=== PATIENT | male | born 1945 | race Caucasian/White ===

== ENCOUNTER → 2016-08-20 | Outpatient (CLI) | payer OTHER ==
[~2016-08-20] MED LIST: DICL-201 PO; LEVO100T7 PO; LPR50X PO; METH2.5T PO; PLQ200 PO; PRED-301 PO; ZCR40 PO
== END | disposition home or self-care (01) ==
LOC: C.LABBFT 08:01
PROVIDERS: ATTEND Internal Medicine
DX: E55.9 Vitamin D deficiency, unspecified (principal)

== ENCOUNTER → 2016-10-06 | Outpatient (CLI) | payer OTHER ==
[2016-10-06 12:30] LABS: BASO % 0.3 %; BASO ABS # 0.03 K/uL (0-0.2); COMPLETE YES; EOS % 2.1 %; HEMATOCRIT 43.6 % (42-52); IG% 0.4 %; LYMPH % 11.8 %; LYMPH ABS # 1.11 K/uL (1.2-3.4); MEAN CELL VOLUME 92.2 fL (80-100); MEAN CORPUSCULAR HEMOGLOBIN 30.9 pg (25-34); MEAN CORPUSCULAR HGB CONC 33.5 g/dl (32-36); MEAN PLATELET VOLUME 9.4 fL (7.4-10.4); NEUT % 79.4 %; PLATELET COUNT 246 K/uL (130-400); RED BLOOD COUNT 4.73 M/uL (4.7-6.1); WHITE BLOOD COUNT 9.43 K/uL (4.8-10.8)
[2016-10-06 13:52] LABS: ALT/SGPT 31 U/L (12-78); AST/SGOT 19 U/L (15-37)
[2016-10-06 13:55] LABS: ALKALINE PHOSPHATASE 82 U/L (45-117)
== END | disposition home or self-care (01) ==
LOC: C.LABBFT 08:37
PROVIDERS: ATTEND Urology
DX: M05.741 Rheumatoid arthritis with rheumatoid factor of right hand without organ or systems involvement (principal); M05.742 Rheumatoid arthritis with rheumatoid factor of left hand without organ or systems involvement; Z79.1 Long term (current) use of non-steroidal anti-inflammatories (NSAID)

== ENCOUNTER → 2017-03-11 | Outpatient (CLI) | payer OTHER ==
[2017-03-11 12:58] LABS: BASO % 0.5 %; BASO ABS # 0.04 K/uL (0-0.2); COMPLETE YES; EOS % 1.7 %; IG% 2.7 %; LYMPH % 21.1 %; LYMPH ABS # 1.74 K/uL (1.2-3.4); MEAN CELL VOLUME 94.1 fL (80-100); MEAN CORPUSCULAR HEMOGLOBIN 30.9 pg (25-34); MEAN CORPUSCULAR HGB CONC 32.8 g/dl (32-36); MEAN PLATELET VOLUME 8.9 fL (7.4-10.4); MONO % 5.7 %; NEUT % 68.3 %; PLATELET COUNT 227 K/uL (130-400); RED BLOOD COUNT 4.57 M/uL (4.7-6.1); WHITE BLOOD COUNT 8.26 K/uL (4.8-10.8)
[2017-03-11 13:24] LABS: ALT/SGPT 44 U/L (12-78); AST/SGOT 22 U/L (15-37)
== END | disposition home or self-care (01) ==
LOC: C.LABBFT 07:39
PROVIDERS: ATTEND Urology
DX: R97.20 Elevated prostate specific antigen [PSA] (principal); Z79.899 Other long term (current) drug therapy

== ENCOUNTER → 2017-04-23 | Outpatient (CLI) | payer OTHER ==
[2017-04-23 12:46] LABS: HEMATOCRIT 42.2 % (42-52); MEAN CELL VOLUME 93.8 fL (80-100); MEAN CORPUSCULAR HEMOGLOBIN 31.1 pg (25-34); MEAN CORPUSCULAR HGB CONC 33.2 g/dl (32-36); PLATELET COUNT 246 K/uL (130-400); WHITE BLOOD COUNT 10.15 K/uL (4.8-10.8)
[2017-04-23 13:10] LABS: BLOOD UREA NITROGEN 15 mg/dl (7-18); BUN/CREATININE RATIO 14.5 (10-20)
[2017-04-23 13:15] LABS: ALKALINE PHOSPHATASE 77 U/L (45-117); ALT/SGPT 36 U/L (12-78); AST/SGOT 19 U/L (15-37)
[2017-04-23 13:21] LABS: COMPLETE YES; LYMPH ABS # 1.59 K/uL (1.2-3.4); LYMPHOCYTE % 15.7 %; MYELOCYTE % 0.9 %; NEUTROPHILS % 73.8 %
== END | disposition home or self-care (01) ==
LOC: C.LABBFT 07:57
PROVIDERS: ATTEND Urology
DX: M54.2 Cervicalgia (principal); M05.741 Rheumatoid arthritis with rheumatoid factor of right hand without organ or systems involvement; M05.742 Rheumatoid arthritis with rheumatoid factor of left hand without organ or systems involvement; Z51.81 Encounter for therapeutic drug level monitoring; Z79.899 Other long term (current) drug therapy; Z79.1 Long term (current) use of non-steroidal anti-inflammatories (NSAID); R97.20 Elevated prostate specific antigen [PSA]

== ENCOUNTER → 2017-04-28 | Outpatient (CLI) | payer OTHER ==
[~2017-04-28] MED LIST changes: +GADAVIST IV PRN
--- NOTE | 2017-04-28 12:53 | DIAGNOSTIC IMAGING REPORT ---
PROSTATE MRI COMBO CLINICAL HISTORY: 71 years-old Male presenting with elevated PSA, history of biopsy 3 years ago. PSA 16 ng/mL. TECHNIQUE: Multisequence, multiplanar MR imaging of the prostate was performed before and after the administration of intravenous contrast. Additional postprocessing was performed on a separate [employer] workstation by the radiologist for 3-D volumetric segmentation of the prostate and contouring of region(s) of interest (SHANTAL) for targeting. IV contrast: 7.5 mL of Gadavist. COMPARISON: 03/31/2016. FINDINGS: Prostate: The prostate measures 5.8 x 4.3 x 4.7 cm (DynaCAD prostate boundary segmentation volume 63 mL). Moderate changes of benign prostatic hyperplasia. Precontrast T1 weighted imaging demonstrates no evidence of intrinsic T1 hyperintensity to suggest hemorrhage. Asymmetric atrophy of the right seminal vesicle. Residual prominent T2 hypointense central zone noted at the prostatic base. No suspicious lesion is apparent in the transition or peripheral zones. Bladder: Bladder wall thickening likely indicating chronic outlet obstruction. Bowel: Rectal wall thickening with enhancing mural vessels suggesting internal hemorrhoids. Peritoneum: No free fluid in the pelvis. Small fat-containing left inguinal hernia. Lymph nodes: No lymphadenopathy in the visualized portion of the pelvis. Vasculature: Iliac vessels patent. Osseous structures: Normal bone marrow signal intensity. IMPRESSION: 1. No suspicious lesion in the prostate for targeted biopsy. 2. Benign prostatic hyperplasia. Electronically signed by: José Barbour M.D. 04/28/2017 12:52 PM Dictated Date/Time: 04/28/2017 12:40 PM
== END | disposition home or self-care (01) ==
LOC: C.MRIBC 09:13
PROVIDERS: ATTEND Urology
DX: R97.20 Elevated prostate specific antigen [PSA] (principal); N40.0 Benign prostatic hyperplasia without lower urinary tract symptoms

== ENCOUNTER → 2017-06-07 | Outpatient (CLI) | payer OTHER ==
[~2017-06-07] MED LIST changes: -GADAVIST IV PRN
== END | disposition home or self-care (01) ==
LOC: C.PATHSPEC 18:11
PROVIDERS: ATTEND Urology
DX: R97.20 Elevated prostate specific antigen [PSA] (principal)

== ENCOUNTER → 2017-07-29 | Outpatient (CLI) | payer OTHER ==
[2017-07-29 12:38] LABS: BASO % 0.2 %; BASO ABS # 0.02 K/uL (0-0.2); EOS % 2.4 %; EOS ABS # 0.19 K/uL (0-0.5); HEMATOCRIT 44.4 % (42-52); HEMOGLOBIN 14.8 g/dL (14.0-18.0); IG# 0.08 K/uL (0.00-0.02); LYMPH % 23.2 %; LYMPH ABS # 1.86 K/uL (1.2-3.4); MEAN CELL VOLUME 97.4 fL (80-100); MEAN CORPUSCULAR HEMOGLOBIN 32.5 pg (25-34); MEAN CORPUSCULAR HGB CONC 33.3 g/dl (32-36); MEAN PLATELET VOLUME 9.5 fL (7.4-10.4); MONO % 7.7 %; MONO ABS # 0.62 K/uL (0.11-0.59); NEUT % 65.5 %; NEUT ABS # 5.26 K/uL (1.4-6.5); PLATELET COUNT 226 K/uL (130-400); RED CELL DISTRIBUTION WIDTH CV 14.5 % (11.5-14.5); RED CELL DISTRIBUTION WIDTH SD 51.8 fL (36.4-46.3); WHITE BLOOD COUNT 8.03 K/uL (4.8-10.8)
[2017-07-29 12:49] LABS: ALBUMIN 3.4 gm/dl (3.4-5.0); ALT/SGPT 39 U/L (12-78); CHOLESTEROL 160 mg/dl (0-200); CREATININE 1.08 mg/dl (0.60-1.40)
[2017-07-29 13:00] LABS: ALKALINE PHOSPHATASE 69 U/L (45-117); AST/SGOT 18 U/L (15-37); LDL CHOLESTEROL CALCULATED 83 mg/dl; TOTAL PROTEIN 6.5 gm/dl (6.4-8.2)
== END | disposition home or self-care (01) ==
LOC: C.LABBFT 07:46
PROVIDERS: ATTEND Internal Medicine
DX: M54.2 Cervicalgia (principal); M05.741 Rheumatoid arthritis with rheumatoid factor of right hand without organ or systems involvement; M05.742 Rheumatoid arthritis with rheumatoid factor of left hand without organ or systems involvement; Z79.1 Long term (current) use of non-steroidal anti-inflammatories (NSAID); E78.00 Pure hypercholesterolemia, unspecified; E03.9 Hypothyroidism, unspecified

== ENCOUNTER 2017-08-27 13:00 | Emergency (ER) | payer OTHER ==
[~2017-08-27] VITALS: Ht 175.3 cm; Wt 75.0 kg
[2017-08-27 13:05] VITALS: TEMP 36.9; Ht 175.3 cm; Wt 75.0 kg
[2017-08-27] MEDS ORDERED: FOLI1TAB8 PO (13:46)
[2017-08-27 13:51] VITALS: O2SAT 97
--- NOTE | 2017-08-27 13:52 | EMERGENCY ROOM VISIT NOTE ---
History Report prepared by Tete: Mely Colby Under the Supervision of: Celina DiazO. First contact with patient: 13:38 Chief Complaint: HYPERTENSION Stated Complaint: HIGH BP, TINGLING IN RT ARM History of Present Illness The patient is a 72 year old male who presents to the Emergency Room with complaints of persistent hypertension that began about one month ago. He notes that he has been experiencing tingling and numbness in his right arm which comes and goes throughout the day. The patient denies any chest pain, trouble breathing, weakness in legs, nausea, or vomiting. He reports that he called his PCP earlier today, who suggested he come to the Emergency Department for further evaluation. The patient states he takes medication for hypertension, high cholesterol, thyroid, and arthritis. He denies ever having a stroke, TIA, or cancer history. Source of History: patient Onset: one month ago Position: other (global) Quality: other (hypertension) Timing: other (persistent) Associated Symptoms: No chest pain, No nausea, No vomiting Note: Associated symptoms include: tingling and numbness in his right arm. The patient denies any trouble breathing or weakness in legs. Review of Systems See HPI for pertinent positives & negatives. A total of 10 systems reviewed and were otherwise negative. Past Medical & Surgical Medical Problems: (1) Arthritis (2) High cholesterol (3) Hypertension (4) Thyroid condition Family History Patient reports no known family medical history. No pertinent family history. Social History Smoking Status: Never Smoker Current/Historical Medications Scheduled Diclofenac (Voltaren), 75 MG PO BID Folic Acid (Folvite), 2 MG PO [id number] Levothyroxine Sodium (Levothyroxine Sodium), 100 MG PO QAM Methotrexate (Methotrexate), 12.5 MG PO WK Metoprolol Tartrate (Metoprolol Tartrate), 50 MG PO BID Prednisone (Prednisone), 10 MG PO BID Simvastatin (Simvastatin), 40 MG PO HS Allergies Coded Allergies: No Known Allergies (Unverified , 08/27/17) Physical Exam Vital Signs Date Time Temp Pulse Resp B/P (MAP) Pulse Ox O2 Delivery O2 Flow Rate FiO2 08/27/17 16:29 65 18 154/94 98 08/27/17 16:24 65 154/94 98 Room Air 08/27/17 14:44 64 18 174/99 96 Room Air 08/27/17 13:51 Room Air 08/27/17 13:51 97 Room Air 08/27/17 13:46 74 08/27/17 13:05 36.9 92 20 176/118 97 Room Air Physical Exam GENERAL: Patient is awake, alert, and in no acute distress. Patient is resting comfortably and showing no signs of anxiety EYES: The conjunctivae are clear. The pupils are round and reactive. EARS, NOSE, MOUTH AND THROAT: The nose is without any evidence of any deformity. Mucous membranes are moist tongue is midline NECK: The neck is nontender and supple. RESPIRATORY: Normal respiratory effort is noted there is no evidence of wheezing rhonchi or rales CARDIOVASCULAR: Regular rate and rhythm noted there no murmurs rubs or gallops normal S1 normal S2 GASTROINTESTINAL: The abdomen is soft. Bowel sounds are present in all quadrants. Abdomen is nontender MUSCULOSKELETAL/EXTREMITIES: There is no evidence of gross deformity full range of motion is noted in the hips and shoulders SKIN: There is no obvious evidence of any rash. There are no petechiae, pallor or cyanosis noted. NEUROLOGIC: Patient is awake alert and oriented x3 strength is symmetric patellar reflexes are 2+ bilaterally Medical Decision & Procedures ER Provider Diagnostic Interpretation: Radiology results as stated below per my review and radiologist interpretation: CHEST ONE VIEW PORTABLE CLINICAL HISTORY: Altered mental status. Hypertension. Left arm tingling. COMPARISON STUDY: No previous studies for comparison. FINDINGS: The heart is normal in size. There is aortic tortuosity. There is mild biapical pleural thickening. There is no failure. There is no focal pulmonary consolidation. There are no pleural effusions.[ IMPRESSION: No active disease in the chest. Electronically signed by: Gino Sepulveda M.D. 08/27/2017 2:20 PM Dictated Date/Time: 08/27/2017 2:[address] HEAD WITHOUT CONTRAST (CT) CLINICAL HISTORY: Altered mental status. Weakness. COMPARISON STUDY: No previous studies for comparison. TECHNIQUE: Axial CT of the brain is performed from the vertex to the skull base. IV contrast was not administered for this examination. A dose lowering technique was utilized adhering to the principles of ALARA. CT DOSE: 638.56 mGycm FINDINGS: No intra or extra-axial mass lesions are visualized. There is no CT evidence of acute cortical infarction. There is no evidence of midline shift. There is no acute hemorrhage. No calvarial fractures are visualized. There are patchy white matter hypodensities likely on a small vessel basis. There is no evidence of pathologic ventricular dilatation. There is no evidence of acute sinusitis IMPRESSION: No acute intracranial findings Electronically signed by: Gino Sepulveda M.D. 08/27/2017 2:24 PM Dictated Date/Time: 08/27/2017 2:23 PM Laboratory Results 08/27/17 13:43 Red Blood Count 4.93, Mean Corpuscular Volume 95.1, Mean Corpuscular Hemoglobin 33.1, Mean Corpuscular Hemoglobin Concent 34.8, Mean Platelet Volume 8.8, Neutrophils (%) (Auto) 86.3, Lymphocytes (%) (Auto) 8.5, Monocytes (%) (Auto) 3.2, Eosinophils (%) (Auto) 0.2, Basophils (%) (Auto) 0.3, Neutrophils # (Auto) 9.11, Lymphocytes # (Auto) 0.90, Monocytes # (Auto) 0.34, Eosinophils # (Auto) 0.02, Basophils # (Auto) 0.03 08/27/17 13:43 Test 08/27/17 13:43 08/27/17 14:40 White Blood Count 10.56 K/uL (4.8-10.8) Red Blood Count 4.93 M/uL (4.7-6.1) Hemoglobin 16.3 g/dL (14.0-18.0) Hematocrit 46.9 % (42-52) Mean Corpuscular Volume 95.1 fL (80-100) Mean Corpuscular Hemoglobin 33.1 pg (25-34) Mean Corpuscular Hemoglobin Concent 34.8 g/dl (32-36) Platelet Count 227 K/uL (130-400) Mean Platelet Volume 8.8 fL (7.4-10.4) Neutrophils (%) (Auto) 86.3 % Lymphocytes (%) (Auto) 8.5 % Monocytes (%) (Auto) 3.2 % Eosinophils (%) (Auto) 0.2 % Basophils (%) (Auto) 0.3 % Neutrophils # (Auto) 9.11 K/uL (1.4-6.5) Lymphocytes # (Auto) 0.90 K/uL (1.2-3.4) Monocytes # (Auto) 0.34 K/uL (0.11-0.59) Eosinophils # (Auto) 0.02 K/uL (0-0.5) Basophils # (Auto) 0.03 K/uL (0-0.2) RDW Standard Deviation 47.9 fL (36.4-46.3) RDW Coefficient of Variation 14.0 % (11.5-14.5) Immature Granulocyte % (Auto) 1.5 % Immature Granulocyte # (Auto) 0.16 K/uL (0.00-0.02) Prothrombin Time 10.0 SECONDS (9.0-12.0) Prothromb Time International Ratio 1.0 (0.9-1.1) Activated Partial Thromboplast Time 23.5 SECONDS (21.0-31.0) Partial Thromboplastin Ratio 0.9 Anion Gap 8.0 mmol/L (3-11) Est Creatinine Clear Calc Drug Dose 60.0 ml/min Estimated GFR () 75.4 Estimated GFR (Non- 65.0 BUN/Creatinine Ratio 18.8 (10-20) Calcium Level 9.2 mg/dl (8.5-10.1) Magnesium Level 2.4 mg/dl (1.8-2.4) Total Bilirubin 0.6 mg/dl (0.2-1) Direct Bilirubin 0.2 mg/dl (0-0.2) Aspartate Amino Transf (AST/SGOT) 23 U/L (15-37) Alanine Aminotransferase (ALT/SGPT) 44 U/L (12-78) Alkaline Phosphatase 80 U/L (45-117) Total Creatine Kinase 59 U/L (39-308) Creatine Kinase MB 0.8 ng/ml (0.5-3.6) Creatine Kinase MB Ratio 1.4 (0-3.0) Troponin I < 0.015 ng/ml (0-0.045) Total Protein 6.9 gm/dl (6.4-8.2) Albumin 4.1 gm/dl (3.4-5.0) Thyroid Stimulating Hormone (TSH) 0.117 uIu/ml (0.300-4.500) Urine Color YELLOW Urine Appearance CLEAR (CLEAR) Urine pH 7.5 (4.5-7.5) Urine Specific [place] 1.014 (1.000-1.030) Urine Protein NEG (NEG) Urine Glucose (UA) 1+ (NEG) Urine Ketones NEG (NEG) Urine Occult Blood NEG (NEG) Urine Nitrite NEG (NEG) Urine Bilirubin NEG (NEG) Urine Urobilinogen NEG (NEG) Urine Leukocyte Esterase NEG (NEG) Laboratory results per my review. ECG Indication: other (hypertension) Rate (beats per minute): 72 Rhythm: normal sinus Findings: other (Inferior and lateral ST abnormalities noted) Comparison ECG Date: 04/08/2002 ED Course 1339: The patient was evaluated in room B12. A complete history and physical examination were performed. 1603: I reevaluated the patient, who was resting comfortably. 1823: I discussed the patient's case with Dr. Mcdonald [facility] [place]. The patient will be evaluated for further management. Medical Decision Triage Nursing notes reviewed. Differential diagnosis: Etiologies such as benign hypertension, hypertensive emergency, cardiovascular pathology, pheochromocytoma, electrolyte abnormality, renal disease, endorgan damage, as well as others were entertained. The patient is a 72-year-old male who presented to the emergency department for an evaluation of hypertension. The patient has been experiencing right upper extremity numbness but this is been ongoing for quite some time. He has no focal neurologic deficit at this time. The patient was not found to have any acute abnormality on CT the head. I discussed patient's laboratory and radiographic studies with him. He was encouraged to continue all medications as prescribed and follow-up with his primary care physician as soon as possible. Otherwise he is encouraged to return to the emergency department immediately if symptoms change worsen or the need arises. Medication Reconcilliation Current Medication List: was personally reviewed by me Blood Pressure Screening Patient's blood pressure: Elevated blood pressure Blood pressure disposition: Elevated BP felt to be situational Impression Primary Impression: Hypertension Scribe Attestation The scribe's documentation has been prepared under my direction and personally reviewed by me in its entirety. I confirm that the note above accurately reflects all work, treatment, procedures, and medical decision making performed by me. Departure Information Dispostion Home / Self-Care Referrals No Doctor, Assigned (PCP) Forms HOME CARE DOCUMENTATION FORM, IMPORTANT VISIT INFORMATION, WORK / SCHOOL INSTRUCTIONS Patient Instructions My [facility] Problem Qualifiers Primary Impression: Hypertension Hypertension type: unspecified Qualified Codes: I10 - Essential (primary) hypertension
[2017-08-27 13:56] LABS: BASO % 0.3 %; BASO ABS # 0.03 K/uL (0-0.2); EOS % 0.2 %; EOS ABS # 0.02 K/uL (0-0.5); HEMATOCRIT 46.9 % (42-52); HEMOGLOBIN 16.3 g/dL (14.0-18.0); IG# 0.16 K/uL (0.00-0.02); LYMPH % 8.5 %; MEAN CELL VOLUME 95.1 fL (80-100); MEAN CORPUSCULAR HEMOGLOBIN 33.1 pg (25-34); MEAN CORPUSCULAR HGB CONC 34.8 g/dl (32-36); MEAN PLATELET VOLUME 8.8 fL (7.4-10.4); MONO % 3.2 %; MONO ABS # 0.34 K/uL (0.11-0.59); NEUT % 86.3 %; NEUT ABS # 9.11 K/uL (1.4-6.5); PLATELET COUNT 227 K/uL (130-400); RED CELL DISTRIBUTION WIDTH SD 47.9 fL (36.4-46.3); WHITE BLOOD COUNT 10.56 K/uL (4.8-10.8)
[2017-08-27 14:06] LABS: PTT PATIENT 23.5 SECONDS (21.0-31.0)
[2017-08-27 14:22] LABS: ALBUMIN 4.1 gm/dl (3.4-5.0); ALT/SGPT 44 U/L (12-78); AST/SGOT 23 U/L (15-37); BLOOD UREA NITROGEN 21 mg/dl (7-18); CALCIUM 9.2 mg/dl (8.5-10.1); CARBON DIOXIDE 25 mmol/L (21-32); CREATININE 1.13 mg/dl (0.60-1.40); GLUCOSE 111 mg/dl (70-99); POTASSIUM 4.4 mmol/L (3.5-5.1); SODIUM 139 mmol/L (136-145)
--- NOTE | 2017-08-27 14:22 | DIAGNOSTIC IMAGING REPORT ---
CHEST ONE VIEW PORTABLE CLINICAL HISTORY: Altered mental status. Hypertension. Left arm tingling. COMPARISON STUDY: No previous studies for comparison. FINDINGS: The heart is normal in size. There is aortic tortuosity. There is mild biapical pleural thickening. There is no failure. There is no focal pulmonary consolidation. There are no pleural effusions.[ IMPRESSION: No active disease in the chest. Electronically signed by: Gino Sepulveda M.D. 08/27/2017 2:20 PM Dictated Date/Time: 08/27/2017 2:20 PM
--- NOTE | 2017-08-27 14:25 | DIAGNOSTIC IMAGING REPORT ---
CT HEAD WITHOUT CONTRAST (CT) CLINICAL HISTORY: Altered mental status. Weakness. COMPARISON STUDY: No previous studies for comparison. TECHNIQUE: Axial CT of the brain is performed from the vertex to the skull base. IV contrast was not administered for this examination. A dose lowering technique was utilized adhering to the principles of ALARA. CT DOSE: 638.56 mGycm FINDINGS: No intra or extra-axial mass lesions are visualized. There is no CT evidence of acute cortical infarction. There is no evidence of midline shift. There is no acute hemorrhage. No calvarial fractures are visualized. There are patchy white matter hypodensities likely on a small vessel basis. There is no evidence of pathologic ventricular dilatation. There is no evidence of acute sinusitis IMPRESSION: No acute intracranial findings Electronically signed by: Gino Sepulveda M.D. 08/27/2017 2:24 PM Dictated Date/Time: 08/27/2017 2:23 PM
[2017-08-27 14:29] LABS: ALKALINE PHOSPHATASE 80 U/L (45-117); CKMB 0.8 ng/ml (0.5-3.6); TOTAL PROTEIN 6.9 gm/dl (6.4-8.2)
[2017-08-27 16:29] VITALS: BP 154/94; PULSE 65; O2SAT 98
== END 2017-08-27 16:31 | disposition home or self-care (01) ==
LOC: C.EDB 13:02
DX: I10 Essential (primary) hypertension (principal); M19.90 Unspecified osteoarthritis, unspecified site; E78.00 Pure hypercholesterolemia, unspecified; E07.9 Disorder of thyroid, unspecified

== ENCOUNTER → 2017-11-04 | Outpatient (CLI) | payer OTHER ==
[~2017-11-04] MED LIST changes: +FOLI1TAB8 PO; -PLQ200 PO
[2017-11-04 12:19] LABS: BASO ABS # 0.06 K/uL (0-0.2); EOS % 3.9 %; EOS ABS # 0.24 K/uL (0-0.5); HEMATOCRIT 44.9 % (42-52); HEMOGLOBIN 15.4 g/dL (14.0-18.0); IG# 0.03 K/uL (0.00-0.02); LYMPH % 27.7 %; MEAN CELL VOLUME 95.5 fL (80-100); MEAN CORPUSCULAR HEMOGLOBIN 32.8 pg (25-34); MEAN CORPUSCULAR HGB CONC 34.3 g/dl (32-36); MEAN PLATELET VOLUME 9.8 fL (7.4-10.4); MONO % 10.6 %; MONO ABS # 0.65 K/uL (0.11-0.59); NEUT % 56.3 %; NEUT ABS # 3.46 K/uL (1.4-6.5); PLATELET COUNT 170 K/uL (130-400); RED CELL DISTRIBUTION WIDTH CV 13.8 % (11.5-14.5); RED CELL DISTRIBUTION WIDTH SD 47.7 fL (36.4-46.3); WHITE BLOOD COUNT 6.14 K/uL (4.8-10.8)
[2017-11-04 12:45] LABS: ALBUMIN 3.7 gm/dl (3.4-5.0); ALKALINE PHOSPHATASE 74 U/L (45-117); ALT/SGPT 35 U/L (12-78); AST/SGOT 22 U/L (15-37); CREATININE 1.32 mg/dl (0.60-1.40); TOTAL PROTEIN 6.2 gm/dl (6.4-8.2)
== END | disposition home or self-care (01) ==
LOC: C.LABBFT 08:08
PROVIDERS: ATTEND Internal Medicine Rheumatology
DX: M05.741 Rheumatoid arthritis with rheumatoid factor of right hand without organ or systems involvement (principal); M05.742 Rheumatoid arthritis with rheumatoid factor of left hand without organ or systems involvement; Z79.899 Other long term (current) drug therapy

== ENCOUNTER → 2018-02-14 | Outpatient (CLI) | payer OTHER ==
[2018-02-14 12:42] LABS: BASO % 1.1 %; BASO ABS # 0.07 K/uL (0-0.2); EOS % 4.4 %; EOS ABS # 0.27 K/uL (0-0.5); HEMATOCRIT 45.2 % (42-52); IG# 0.05 K/uL (0.00-0.02); LYMPH % 22.5 %; LYMPH ABS # 1.39 K/uL (1.2-3.4); MEAN CELL VOLUME 92.6 fL (80-100); MEAN CORPUSCULAR HEMOGLOBIN 30.7 pg (25-34); MEAN CORPUSCULAR HGB CONC 33.2 g/dl (32-36); MEAN PLATELET VOLUME 9.6 fL (7.4-10.4); MONO % 12.4 %; MONO ABS # 0.77 K/uL (0.11-0.59); NEUT % 58.8 %; NEUT ABS # 3.64 K/uL (1.4-6.5); PLATELET COUNT 189 K/uL (130-400); RED CELL DISTRIBUTION WIDTH CV 13.4 % (11.5-14.5); RED CELL DISTRIBUTION WIDTH SD 45.2 fL (36.4-46.3); WHITE BLOOD COUNT 6.19 K/uL (4.8-10.8)
[2018-02-14 13:08] LABS: ALBUMIN 3.6 gm/dl (3.4-5.0); ALKALINE PHOSPHATASE 65 U/L (45-117); ALT/SGPT 28 U/L (12-78); AST/SGOT 17 U/L (15-37); CREATININE 1.18 mg/dl (0.60-1.40); TOTAL PROTEIN 6.1 gm/dl (6.4-8.2)
== END | disposition home or self-care (01) ==
LOC: C.LABBFT 07:50
PROVIDERS: ATTEND Internal Medicine Rheumatology
DX: M05.741 Rheumatoid arthritis with rheumatoid factor of right hand without organ or systems involvement (principal); M05.742 Rheumatoid arthritis with rheumatoid factor of left hand without organ or systems involvement; Z79.1 Long term (current) use of non-steroidal anti-inflammatories (NSAID); Z79.899 Other long term (current) drug therapy

== ENCOUNTER 2025-01-31 21:10 | Observation (INO) ==
[2025-01-31 21:36] LABS: Hematocrit (blood only) 42.9 % (42.0-52.0); Hemoglobin 14.3 g/dl (14.0-18.0); Immature Granulocytes # (auto) 0.09 K/uL (0.01-0.20); Immature Granulocytes % (auto) 0.7 %; Mean Corpuscular Hemoglobin 31.1 pg (25.0-34.0); Mean Corpuscular Volume 93.3 fL (80.0-100.0); Platelet Count 236 K/uL (130-400); RDW Standard Deviation 49.8 fL (36.4-46.3); Red Blood Count 4.60 M/uL (4.70-6.10); White Blood Count 13.09 K/ul (4.8-10.8)
[2025-01-31 21:51] LABS: Anion Gap 6.0 (3-11); Blood Urea Nitrogen 24.0 mg/dl (6-23); Calcium 9.4 mg/dl (8.6-10.3); Carbon Dioxide 29.0 mmol/L (21-32); Chloride 102.0 mmol/L (98-107); Creatinine Clr Calc Pharmacy 41.8 ml/min; Glucose 131.0 mg/dl (70-99(Fasting)); Lipase 17.0 U/L (11-82); Potassium 4.0 mmol/L (3.5-5.1); Sodium 137.0 mmol/L (136-145)
[2025-01-31 22:07] LABS: INR 0.9 (0.9-1.1); Partial Thromboplastin Time 26 Seconds (21-31); Prothrombin Time 10.3 Seconds (9.0-12.0)
[2025-01-31] MEDS: OPTIRAY 320 125ml IV ONE (22:49)
[2025-01-31] MEDS: SODIUM CHLORIDE 0.9% 500 ML IV SCH (22:55)
--- NOTE | 2025-01-31 23:20 | XRay Report ---
Exam(s): XR CXR 1 VIEW EXAM: XR Chest, 1 View CLINICAL HISTORY: Reason for exam: Chest pain, nonspecific. TECHNIQUE: Frontal view of the chest. COMPARISON: 08/08/2021 FINDINGS: Lungs: No consolidation. No overt edema. Pleural space: No pleural effusion. No pneumothorax. Heart: Unremarkable. No cardiomegaly. IMPRESSION: No acute cardiopulmonary abnormality. Electronically signed by: Tony Franco MD 01/31/25 23:20 PM
--- NOTE | 2025-01-31 23:39 | CT Scan Report ---
Exam(s): CTA CHEST IV Amt: 115 ml optiray 320 EXAM: CT Angiography Chest With Intravenous Contrast CLINICAL HISTORY: Reason for exam: ro pe. TECHNIQUE: Axial computed tomographic angiography images of the chest with intravenous contrast. CTDI is 20.42 mGy and DLP is 659.28 mGy-cm. Automated exposure control was utilized for the study. A dose lowering technique was utilized adhering to the principles of ALARA. MIP reconstructed images were created and reviewed. COMPARISON: No relevant prior studies available. FINDINGS: Pulmonary arteries: No pulmonary embolism. Aorta: No acute findings. Normal caliber. No dissection. Lungs: Atelectasis at the lung bases. No consolidation or interstitial edema. Nodule along the right lesser fissure measuring 7 mm. Likely an intrafissural lymph node. Pleural space: No pleural effusion. No pneumothorax. Heart: Unremarkable. Bones/joints: No acute fracture. Soft tissues: Unremarkable. Lymph nodes: Unremarkable. IMPRESSION: No pulmonary embolism. Electronically signed by: Tony Franco MD 01/31/25 23:38 PM
[2025-02-01] MEDS: ASPIRIN 81 MG CHEW PO STA (00:26)
--- NOTE | 2025-02-01 00:27 | Emergency Department Note ---
History of Present Illness General Chief Complaint: Chest Pain Stated Complaint: CHEST PAIN, SOB Time Seen by Provider: 01/31/25 21:15 History of Present Illness Provider Complaint: chest pain Time: 17:00 Duration: intermittent Onset: during rest Pain Location: substernal Pain Radiation: none Severity: moderate Maximum Pain Intensity: 5 Current Pain Intensity: 5 Quality: + tightness and + aching Relieved By: + nothing Exacerbated By: + inspiration Context: no recent illness, no recent surgery, no recent travel, no trauma/injury, no new medications or no history of DVT/PE Associated symptoms: + dyspnea; no nausea, no syncope, no palpitations, no fever, no cough or no leg swelling Home Medications Medication Instructions Recorded Confirmed Type cholecalciferol (vitamin D3) 50 2,000 unit PO QPM #30 caps 12/07/18 01/31/25 History mcg (2,000 unit) capsule folic acid 1 mg tablet 1 mg PO QAM 08/21/20 01/31/25 History irbesartan 300 mg tablet 300 mg PO QAM #90 tabs 03/06/24 01/31/25 Rx simvastatin 40 mg tablet 40 mg PO HS #90 tabs 08/14/24 01/31/25 Rx finasteride 5 mg tablet 5 mg PO QAM 09/05/24 01/31/25 History miconazole nitrate 2 % topical 1 applic topical BID PRN Rash 09/05/24 01/31/25 History cream vitamin B12 500 mcg-folic acid 400 1 tab PO DAILY 09/05/24 01/31/25 History mcg tablet methotrexate sodium 2.5 mg tablet 7.5 mg PO WK 09/20/24 01/31/25 History levothyroxine 88 mcg tablet 88 mcg PO QAM #90 tabs 10/09/24 01/31/25 Rx metoprolol tartrate 25 mg tablet 25 mg PO BID #60 tabs 10/18/24 01/31/25 Rx hydrochlorothiazide 12.5 mg tablet 12.5 mg PO QPM #90 tabs 11/10/24 01/31/25 Rx Allergies Allergy/AdvReac Type Severity Reaction Status Date / Time No Known Drug Allergies Allergy Verified 12/05/24 09:20 Past Med/Surg History Problem List (Updated 02/01/25 @ 00:27 by Dayne Bermudez MD) Chest pain (Acute) Chronic kidney disease, stage 3 Elevated serum creatinine COVID-19 (Acute) History of placement of ear tubes right ear only History of colon polyps Encounter for pre-operative examination TMJ (temporomandibular joint disorder) Eustachian tube dysfunction Pulsatile tinnitus Allergic rhinitis Tinnitus of both ears Atopic dermatitis (Acute) Bilateral shoulder pain (Acute) Candidal intertrigo (Acute) Hypercholesterolemia (Acute) Neck pain (Acute) Pain in joint of left shoulder (Acute) Pain in joint of right shoulder (Acute) Pressure sensation in right ear (Acute) Vertigo (Acute) Vitamin D deficiency (Acute) Sensorineural hearing loss (SNHL) of both ears (Acute) Rheumatoid arthritis involving both hands with positive rheumatoid factor (Acute) Osteopenia (Acute) Neoplasm of prostate, malignant (Acute) pt denies NSAID long-term use (Acute) Microscopic hematuria (Acute) Long-term use of high-risk medication (Acute) 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 of systemic steroids (Acute) Hypothyroidism (Acute) Herpes labialis (Acute) Hemorrhoids, internal (Acute) Encounter for screening for malignant neoplasm of colon (Acute) Elevated prostate specific antigen (PSA) (Acute) Diverticulosis (Acute) Carpal tunnel syndrome (Acute) Arthralgia of multiple sites (Acute) Aphthous ulcer of mouth (Acute) Adenomatous polyp of colon (Acute) Arthritis Thyroid condition Hypertension Medical History History of COVID-19 (2021) CKD (chronic kidney disease), stage III TMJ (dislocation of temporomandibular joint) pt denies, per hx Hx of syncope due to dehydration, pt. states this happened 3 times, most recent in 2023 Hx of vertigo Tinnitus Rheumatoid arthritis involving both hands with positive rheumatoid factor Osteopenia Hypothyroidism Diverticulosis Arthritis Hx of colonic polyp Hx of basal cell carcinoma BPH (benign prostatic hyperplasia) History of kidney stones HLD (hyperlipidemia) HTN (hypertension) Surgical History Hx of colonoscopy with polypectomy History of basal cell carcinoma (BCC) excision History of prostate biopsy History of colonoscopy History of wisdom tooth extraction History of myringotomy right History of cystoscopy History of Cystoscopy With Ureteroscopy With Manipulation Of Calculus History of cataract surgery bilt History of hernia repair x2 Family History Mother Diabetes CHF (congestive heart failure) Father Lung cancer Brother Prostate cancer Coronary heart disease Myocardial infarction Sister Familial heart disease Lymphoma Cancer Other No family history of adverse response to anesthesia Denies family history of Ovarian cancer Breast cancer Colorectal cancer Social History Smoking Status: Never smoker Tobacco Type: Pipe and Smokeless Tobacco (Dip or Chew) Age Started Using Tobacco: 22; Age Quit Using Tobacco: 59; Second Hand Exposure: No; Do You Dip or Chew Tobacco: Yes (chews daily (advised)); Hx Alcohol Use: No Hx Substance Use: No Preferred Language: Mohawk Communication Ability: Effective Visual Impairment: Limited Hearing Ability: Hard of Hearing Still Operator Gin Required: No Beliefs That Will Affect Care: None marital status: / Current Living Situation: Alone 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 How many Children do You have: 1 Feels Safe at Home: Yes Childhood Exposure to Second-Hand Smoke: No Diet: regular caffeine: Yes (tea in AM) during the past year weight has: remained stable Dental Care, Regularly: Yes Physical Activity Frequency: 1-2 Times per Week Seatbelt Use: always Sunscreen Use: Yes Assistive Devices: Glasses Physical Exam Vital Signs Vital Signs - 24 hr 01/31/25 21:11 01/31/25 22:36 01/31/25 23:11 Temperature 36.8 C Temperature Source Temporal Artery Scan Pulse Rate 86 81 Pulse Rate [Apical] 85 Respiratory Rate 18 22 Respiratory Effort / Characteristics Non-Labored Non-Labored Spontaneous Respiratory Depth Normal Normal Respiratory Pattern Regular Blood Pressure 171/99 H Blood Pressure [Right Arm] 138/82 Blood Pressure Mean 123 Blood Pressure Mean [Right Arm] 100 Pulse Oximetry 97 96 Oxygen Delivery Method Room Air Room Air Sepsis Recent Fever Within 48 Hours No Sepsis New/Unexplained Change in Mental Status No Sepsis Action Taken by Nursing No Action Required 01/31/25 23:12 Temperature Temperature Source Pulse Rate Pulse Rate [Apical] Respiratory Rate Respiratory Effort / Characteristics Respiratory Depth Respiratory Pattern Blood Pressure Blood Pressure [Right Arm] Blood Pressure Mean Blood Pressure Mean [Right Arm] Pulse Oximetry 97 Oxygen Delivery Method Room Air Sepsis Recent Fever Within 48 Hours Sepsis New/Unexplained Change in Mental Status Sepsis Action Taken by Nursing Physical Exam GENERAL: oriented to person, place, and time. appears well-developed and well- nourished. HENT: Exam performed. - Head: Normocephalic and atraumatic. EYES: Conjunctivae and EOM are normal. Right eye exhibits no discharge. Left eye exhibits no discharge. No scleral icterus. NECK: Normal range of motion. Neck supple. No JVD present. CV: Normal rate, regular rhythm, normal heart sounds and intact distal pulses. There is no peripheral edema. Palpable radial pulses bue. PULM/CHEST: Effort normal and breath sounds normal. No respiratory distress. No stridor. no wheezes. no rales. ABD: The abdomen is soft. There is no tenderness. NEURO: Motor and sensation grossly intact. SKIN: Skin is warm and dry. He is not diaphoretic. PSYCH: normal mood and affect. Behavior is normal. Judgment and thought content normal. Course Course 2114: The patient was evaluated in room A1-. A complete history and physical exam was performed Cardiac monitoring: An order was placed for continuous cardiac monitoring. The monitor shows a rate of 80 with sinus rhythm interpreted by ut 2350: Vital signs stable. Labs and imaging are unremarkable with the exception of mild leukocytosis of 13. Patient will be admitted for chest pain rule out ACS. Administered Medications Sodium Chloride (Nss) 500 mls @ 80 mls/hr IV .Q6H15M [facility] Stop: 02/01/25 04:29 Last Admin: 01/31/25 22:55 Dose: 80 mls/hr Documented By: NRB Discontinued Medications Ioversol (Optiray 320 125ml) 115 ml IV ONCE ONE Stop: 01/31/25 22:49 Last Admin: 01/31/25 22:49 Dose: 115 ml Documented By: YAYA Medical Decision Making Laboratory Data Attestation: I reviewed the patient's lab results. 01/31/25 21:20 01/31/25 21:20 Labs: Lab Results 01/31/25 Range/Units 21:20 WBC 13.09 H (4.8-10.8) K/ul RBC 4.60 L (4.70-6.10) M/uL Hgb 14.3 (14.0-18.0) g/dl Hct 42.9 (42.0-52.0) % MCV 93.3 (80.0-100.0) fL MCH 31.1 (25.0-34.0) pg MCHC 33.3 (32.0-36.0) g/dL RDW Std Deviation 49.8 H (36.4-46.3) fL RDW Coeff of Dayo 14.6 H (11.5-14.5) % Plt Count 236 (130-400) K/uL MPV 9.0 L (9.4-12.4) fL Immature Gran % (Auto) 0.7 % Neut % (Auto) 80.9 % Lymph % (Auto) 9.9 % Blair % (Auto) 6.1 % Eos % (Auto) 1.9 % Baso % (Auto) 0.5 % Neut # (Auto) 10.59 H (1.40-6.50) K/uL Lymph # (Auto) 1.29 (1.20-3.40) K/uL Blair # (Auto) 0.80 H (0.11-0.59) K/uL Eos # (Auto) 0.25 (0.00-0.50) K/uL Baso # (Auto) 0.07 (0.00-0.20) K/uL Immature Gran # (Auto) 0.09 (0.01-0.20) K/uL PT 10.3 (9.0-12.0) Seconds INR 0.9 (0.9-1.1) APTT 26 (21-31) Seconds PTT Ratio 1.0 Sodium 137 (136-145) mmol/L Potassium 4.0 (3.5-5.1) mmol/L Chloride 102 (98-107) mmol/L Carbon Dioxide 29 (21-32) mmol/L Anion Gap 6 (3-11) BUN 24 H (6-23) mg/dl Creatinine 1.41 H (0.6-1.4) mg/dl Est Cr Clr Drug Dosing 41.8 ml/min eGFR 51.01 BUN/Creatinine Ratio 17.0 (10-20) Glucose 131 H (70-99(Fasting)) mg/dl Calcium 9.4 (8.6-10.3) mg/dl Troponin I High Sens 5.1 (0-20) pg/ml Lipase 17 (11-82) U/L Imaging Data Chest x-ray: Attestation: I personally reviewed and interpreted this imaging study as follows: My impression: Chest x-ray negative. Airway clear. No pneumothorax. No consolidation. No cardiomegaly or cephalization.. No free air under the diaphragm. No fractures of the skeletal structures. Radiologist's impression: Exam(s): XR CXR 1 VIEW EXAM: XR Chest, 1 View CLINICAL HISTORY: Reason for exam: Chest pain, nonspecific. TECHNIQUE: Frontal view of the chest. COMPARISON: 08/08/2021 FINDINGS: Lungs: No consolidation. No overt edema. Pleural space: No pleural effusion. No pneumothorax. Heart: Unremarkable. No cardiomegaly. IMPRESSION: No acute cardiopulmonary abnormality. Electronically signed by: Tony Franco MD 01/31/25 23:20 PM Dictated: 01/31/252319 Transcribed: 01/31/252319 CT scan - chest: Radiologist's impression: Exam(s): CTA CHEST IV Amt: 115 ml optiray 320 EXAM: CT Angiography Chest With Intravenous Contrast CLINICAL HISTORY: Reason for exam: ro pe. TECHNIQUE: Axial computed tomographic angiography images of the chest with intravenous contrast. CTDI is 20.42 mGy and DLP is 659.28 mGy-cm. Automated exposure control was utilized for the study. A dose lowering technique was utilized adhering to the principles of ALARA. MIP reconstructed images were created and reviewed. COMPARISON: No relevant prior studies available. FINDINGS: Pulmonary arteries: No pulmonary embolism. Aorta: No acute findings. Normal caliber. No dissection. Lungs: Atelectasis at the lung bases. No consolidation or interstitial edema. Nodule along the right lesser fissure measuring 7 mm. Likely an intrafissural lymph node. Pleural space: No pleural effusion. No pneumothorax. Heart: Unremarkable. Bones/joints: No acute fracture. Soft tissues: Unremarkable. Lymph nodes: Unremarkable. IMPRESSION: No pulmonary embolism. Electronically signed by: Tony Franco MD 01/31/25 23:38 PM Dictated: 01/31/252337 Transcribed: 01/31/252337 ECG Data Attestation: I personally reviewed and interpreted this ECG as follows: Rate (beats per minute): 81 Rhythm: normal sinus Findings: + 1st degree AV block; no ST depression, no ST elevation or no prolonged QT Additional Comments: QRS 70 MDM Narrative 2114: The patient was evaluated in room A1-. A complete history and physical exam was performed Cardiac monitoring: An order was placed for continuous cardiac monitoring. The monitor shows a rate of 80 with sinus rhythm interpreted by me 2350: Vital signs stable. Labs and imaging are unremarkable with the exception of mild leukocytosis of 13. Patient will be admitted for chest pain rule out ACS. Impression & Plan Chest pain Discharge Plan Visit Data Chief Complaint: Chest Pain Stated Complaint: CHEST PAIN, SOB ED Provider: Dayne Bermudez Discharge Problem: Chest pain Patient Disposition: Being Evaluated by Hospitalist Condition: Fair Forms Stand Alone Forms: [facility] Prescriptions Prescriptions: No Action irbesartan 300 mg tablet 300 mg PO QAM Qty: 90 3RF simvastatin 40 mg tablet 40 mg PO HS Qty: 90 3RF Rx Instructions: TAKE ONE TABLET BY MOUTH NIGHTLY AT BEDTIME levothyroxine 88 mcg tablet 88 mcg PO QAM Qty: 90 3RF hydrochlorothiazide 12.5 mg tablet 12.5 mg PO QPM Qty: 90 3RF cholecalciferol (vitamin D3) 2,000 unit capsule 2,000 unit PO QPM Qty: 30 folic acid 1 mg tablet 1 mg PO QAM metoprolol tartrate 25 mg tablet 25 mg PO BID Qty: 60 5RF methotrexate sodium 2.5 mg tablet 7.5 mg PO WK Patient Comments: takes on wednesdays- reports only taking 3 tabs Rx Instructions: 2.5mg TABS --TAKES 3 tablets ON WEDNESDAYS. vitamin [id number] acid 500-400 mcg Tablet 1 tab PO DAILY Rx Instructions: administer with a meal miconazole nitrate 2 % cream 1 applic topical BID PRN (Reason: Rash) finasteride 5 mg tablet 5 mg PO QAM Referrals Referrals: Estrada Benjamin MD [Primary Care Provider] - Discharge Problem: Chest pain Qualifiers: Chest pain type: unspecified Qualified Code(s): R07.9 - Chest pain, unspecified
--- NOTE | 2025-02-01 00:41 | History & Physical Report ---
Date of Service February 01, 2025 Assessment & Plan (1) Chest pain: (2) Elevated serum creatinine: (3) Pericarditis: (4) Rheumatoid arthritis involving both hands with positive rheumatoid factor: Plan 79 year old male presents to the ER with chest pain #Chest pain rule out OR / suspected pericarditis Chest pain history fits much better with pericarditis than acute coronary syndrome, less likely GERD (does not explain pleuritic nature or upper tooth pain), however with age, rapid onset and no EKG changes plan to observe overnight with repeat troponins to rule out ACS Start colchicine 0.6mg PO BID for suspected pericarditis ?due to RA Repeat troponin with AM labs, repeat EKG in AM and TTE to rule out OR, if everything looks normal consider NSAIDs vs. ASA vs. prednisone Consult cardiology #Rheumatoid arthritis Continue methotrexate #Hypertension Continue metoprolol, hydrochlorothiazide and irbesartan VTE Prophylaxis - low risk, deferred Disposition - observation to med/tele Admission and Anticipated Discharge Date Admission Date: February 01, 2025 History of Present Illness Chief Complaint: Chest pain Primary Care Provider: Estrada Benjamin MD Abhijit Cifuentes is a 79 year old male who presents to the ER with chest pain. Describes approximate 10 minutes after eating a sandwich from brother's pizza when he got out of the car. Initially thought it was because of gas as this is occurred previously but after passing flatus it did not help. Pain started at 5 PM, severity 8 out of 10, substernal radiating to his upper teeth, progressively got better, current severity 4-5 out of 10 only on inspiration (minimal not on inspiration), sharp pain, better standing up, was sitting down especially lying down. He denies any history of heartburn and notes no acid taste in his mouth. He has already taken his evening medications. Allergies Allergy/AdvReac Type Severity Reaction Status Date / Time No Known Drug Allergies Allergy Verified 12/05/24 09:20 Home Medications Medication Instructions Recorded Confirmed Type cholecalciferol (vitamin D3) 50 2,000 unit PO QPM #30 caps 12/07/18 01/31/25 History mcg (2,000 unit) capsule folic acid 1 mg tablet 1 mg PO QAM 08/21/20 01/31/25 History irbesartan 300 mg tablet 300 mg PO QAM #90 tabs 03/06/24 01/31/25 Rx simvastatin 40 mg tablet 40 mg PO HS #90 tabs 08/14/24 01/31/25 Rx finasteride 5 mg tablet 5 mg PO QAM 09/05/24 01/31/25 History miconazole nitrate 2 % topical 1 applic topical BID PRN Rash 09/05/24 01/31/25 History cream vitamin B12 500 mcg-folic acid 400 1 tab PO DAILY 09/05/24 01/31/25 History mcg tablet methotrexate sodium 2.5 mg tablet 7.5 mg PO WK 09/20/24 01/31/25 History levothyroxine 88 mcg tablet 88 mcg PO QAM #90 tabs 10/09/24 01/31/25 Rx metoprolol tartrate 25 mg tablet 25 mg PO BID #60 tabs 10/18/24 01/31/25 Rx hydrochlorothiazide 12.5 mg tablet 12.5 mg PO QPM #90 tabs 11/10/24 01/31/25 Rx Past Med/Surg History Problem List (Updated 02/01/25 @ 02:59 by Marty Bills MD) Pericarditis Chest pain (Acute) Chronic kidney disease, stage 3 Elevated serum creatinine COVID-19 (Acute) History of placement of ear tubes right ear only History of colon polyps Encounter for pre-operative examination TMJ (temporomandibular joint disorder) Eustachian tube dysfunction Pulsatile tinnitus Allergic rhinitis Tinnitus of both ears Atopic dermatitis (Acute) Bilateral shoulder pain (Acute) Candidal intertrigo (Acute) Hypercholesterolemia (Acute) Neck pain (Acute) Pain in joint of left shoulder (Acute) Pain in joint of right shoulder (Acute) Pressure sensation in right ear (Acute) Vertigo (Acute) Vitamin D deficiency (Acute) Sensorineural hearing loss (SNHL) of both ears (Acute) Rheumatoid arthritis involving both hands with positive rheumatoid factor (Acute) Osteopenia (Acute) Neoplasm of prostate, malignant (Acute) pt denies NSAID long-term use (Acute) Microscopic hematuria (Acute) Long-term use of high-risk medication (Acute) longterm (current) use of systemic steroids (Acute) Hypothyroidism (Acute) Herpes labialis (Acute) Hemorrhoids, internal (Acute) Encounter for screening for malignant neoplasm of colon (Acute) Elevated prostate specific antigen (PSA) (Acute) Diverticulosis (Acute) Carpal tunnel syndrome (Acute) Arthralgia of multiple sites (Acute) Aphthous ulcer of mouth (Acute) Adenomatous polyp of colon (Acute) Arthritis Thyroid condition Hypertension Medical History History of COVID-19 (2021) CKD (chronic kidney disease), stage III TMJ (dislocation of temporomandibular joint) pt denies, per hx Hx of syncope due to dehydration, pt. states this happened 3 times, most recent in 2023 Hx of vertigo Tinnitus Rheumatoid arthritis involving both hands with positive rheumatoid factor Osteopenia Hypothyroidism Diverticulosis Arthritis Hx of colonic polyp Hx of basal cell carcinoma BPH (benign prostatic hyperplasia) History of kidney stones HLD (hyperlipidemia) HTN (hypertension) Surgical History Hx of colonoscopy with polypectomy History of basal cell carcinoma (BCC) excision History of prostate biopsy History of colonoscopy History of wisdom tooth extraction History of myringotomy right History of cystoscopy History of Cystoscopy With Ureteroscopy With Manipulation Of Calculus History of cataract surgery bilt History of hernia repair x2 Family History Mother Diabetes CHF (congestive heart failure) Father Lung cancer Brother Prostate cancer Coronary heart disease Myocardial infarction Sister Familial heart disease Lymphoma Cancer Other No family history of adverse response to anesthesia Denies family history of Ovarian cancer Breast cancer Colorectal cancer Social History Smoking Status: Never smoker Tobacco Type: Smokeless Tobacco (Dip or Chew) Age Started Using Tobacco: 22; Age Quit Using Tobacco: 59; Second Hand Exposure: No; Do You Dip or Chew Tobacco: Yes; Hx Alcohol Use: No Hx Substance Use: No Preferred Language: Belarusian Communication Ability: Effective Visual Impairment: Limited Hearing Ability: Hard of Hearing Steffen House Supervisor Required: No Beliefs That Will Affect Care: None marital status: / Current Living Situation: Alone 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 How many Children do You have: 1 Feels Safe at Home: Yes Childhood Exposure to Second-Hand Smoke: No Diet: regular caffeine: Yes (tea in AM) during the past year weight has: remained stable Dental Care, Regularly: Yes Physical Activity Frequency: 1-2 Times per Week Seatbelt Use: always Sunscreen Use: Yes Assistive Devices: Glasses Review of Systems Review of Systems: All systems reviewed & are unremarkable except as noted in HPI & below Physical Exam Constitutional: WD/WN, vitals as above ENMT: external ear and nose normal, oropharynx normal Respiratory: normal respiratory effort, lungs clear to auscultation Cardiovascular: RRR, no murmur, no edema Gastrointestinal (Abdomen): normal bowel sounds, soft, nontender, no hepatosplenomegaly Results & Data Results & Data Vital Signs (Past 12 Hours) Vital Signs Temp Pulse Pulse Resp BP BP Pulse Ox 01/31/25 23:12 97 01/31/25 23:11 85 22 138/82 96 01/31/25 22:36 81 01/31/25 21:11 36.8 C 86 18 171/99 H 97 O2 Del Method 01/31/25 23:12 Room Air 01/31/25 23:11 Room Air 01/31/25 22:36 01/31/25 21:11 Room Air Laboratory Results Abnormal lab results 01/31/25 01/31/25 Range/Units 21:20 23:58 WBC 13.09 H (4.8-10.8) K/ul RBC 4.60 L (4.70-6.10) M/uL RDW Std Deviation 49.8 H (36.4-46.3) fL RDW Coeff of Dayo 14.6 H (11.5-14.5) % MPV 9.0 L (9.4-12.4) fL Neut # (Auto) 10.59 H (1.40-6.50) K/uL [place] # (Auto) 0.80 H (0.11-0.59) K/uL ESR 35 H (0-20) mm/hr BUN 24 H (6-23) mg/dl Creatinine 1.41 H (0.6-1.4) mg/dl Glucose 131 H (70-99(Fasting)) mg/dl C-Reactive Protein 2.15 H (0-0.5) mg/dl Diagnostic Findings XR Chest, 1 View CLINICAL HISTORY: Reason for exam: Chest pain, nonspecific. TECHNIQUE: Frontal view of the chest. COMPARISON: 08/08/2021 FINDINGS: Lungs: No consolidation. No overt edema. Pleural space: No pleural effusion. No pneumothorax. Heart: Unremarkable. No cardiomegaly. IMPRESSION: No acute cardiopulmonary abnormality. CT Angiography Chest With Intravenous Contrast CLINICAL HISTORY: Reason for exam: ro pe. TECHNIQUE: Axial computed tomographic angiography images of the chest with intravenous contrast. CTDI is 20.42 mGy and DLP is 659.28 mGy-cm. Automated exposure control was utilized for the study. A dose lowering technique was utilized adhering to the principles of ALARA. MIP reconstructed images were created and reviewed. COMPARISON: No relevant prior studies available. FINDINGS: Pulmonary arteries: No pulmonary embolism. Aorta: No acute findings. Normal caliber. No dissection. Lungs: Atelectasis at the lung bases. No consolidation or interstitial edema. Nodule along the right lesser fissure measuring 7 mm. Likely an intrafissural lymph node. Pleural space: No pleural effusion. No pneumothorax. Heart: Unremarkable. Bones/joints: No acute fracture. Soft tissues: Unremarkable. Lymph nodes: Unremarkable. IMPRESSION: No pulmonary embolism. Medications Administered ER medications given: Aspirin 324 mg PO ECG Rate (beats per minute): 81 Rhythm: normal sinus Findings: + 1st degree AV block; no acute ischemic change Comparison ECG Date: from (August 08, 2021) Change: no significant change Code Status & VTE Plan Code Status Full VTE Prophylaxis Plan VTE Prophylaxis will be ordered: No PG Care Time/CCT Total # of Minutes Spent Total Time Spent with Patient: Total time spent is greater than 50% in coordination of care (as documented) at patient's floor/unit and/or counseling patient: Coding Level of Care Code 25612 INT INP/OBS CARE 3/75MIN Diagnoses Chest pain R07.9 Chest pain type: unspecified Elevated serum creatinine R79.89 Pericarditis I31.9 Rheumatoid arthritis involving both hands with positive rheumatoid factor M05.741; M05.742 (1) Chest pain Chest pain type: unspecified Qualified Code(s): R07.9 - Chest pain, unspecified
[2025-02-01] MEDS: COLCHICINE 0.6 MG TAB PO STA (02:53)
[2025-02-01 04:07] VITALS: O2SAT 96
[2025-02-01 05:54] LABS: Hematocrit (blood only) 41.8 % (42.0-52.0); Hemoglobin 14.0 g/dl (14.0-18.0); Mean Corpuscular Hemoglobin 30.4 pg (25.0-34.0); Mean Corpuscular Volume 90.7 fL (80.0-100.0); Platelet Count 193 K/uL (130-400); RDW Standard Deviation 47.3 fL (36.4-46.3); Red Blood Count 4.61 M/uL (4.70-6.10); White Blood Count 9.83 K/ul (4.8-10.8)
[2025-02-01 06:11] LABS: Anion Gap 6.0 (3-11); Blood Urea Nitrogen 21.0 mg/dl (6-23); Calcium 9.0 mg/dl (8.6-10.3); Carbon Dioxide 26.0 mmol/L (21-32); Chloride 105.0 mmol/L (98-107); Cholesterol 135.0 mg/dl (0-200); Creatinine Clr Calc Pharmacy 51.2 ml/min; Glucose 115.0 mg/dl (70-99(Fasting)); HDL Cholesterol 43.0 mg/dl; Potassium 3.9 mmol/L (3.5-5.1); Sodium 137.0 mmol/L (136-145); Triglycerides 94.0 mg/dl (0-150)
[2025-02-01] MEDS: LEVOTHYROXINE SODIUM 88 MCG TABLET PO SCH (06:24)
[2025-02-01 07:12] LABS: Hemoglobin A1C 5.6 % (4.5-5.6)
[2025-02-01 07:28] VITALS: RESP 18
[2025-02-01] MEDS: METOPROLOL TARTRATE 25 MG TAB PO SCH (08:31)
[2025-02-01] MEDS: FINASTERIDE 5 MG TAB PO SCH (08:31)
[2025-02-01] MEDS: COLCHICINE 0.6 MG TAB PO SCH (08:31)
[2025-02-01] MEDS: LOSARTAN POTASSIUM 50 MG TAB PO SCH (08:32)
[2025-02-01] MEDS: FOLIC ACID 1 MG TAB PO SCH (08:32)
[2025-02-01 08:53] LABS: Creatine Kinase 32.0 U/L (30-223)
[2025-02-01 11:30] VITALS: TEMP 97.5
--- NOTE | 2025-02-01 11:45 | XCELERA ---
[id number] \\[id number]
--- NOTE | 2025-02-01 13:29 | Discharge Summary ---
Discharge Summary Date of Service February 01, 2025 Principal Dx & Hospital Course #1 = Principal Diagnosis (1) Chest pain: (2) Elevated serum creatinine: (3) Pericarditis: (4) Rheumatoid arthritis involving both hands with positive rheumatoid factor: Plan 79 years old male with PMH of FULL CODE @ home, overweight with BMI 25.8 (height 172.7 cm; weight 77.0 kg), BPH on finasteride 5mg PO qam, h ypothyroidism on synthroid 88ug PO daily with normal TSH 1.774 uIU/mL (09/05/2024, 8:32am), chronic hyperlipidemia on simvastatin 40mg PO qhs with fasting total cholesterol 135 mg/dL, HDL 43 mg/dL, LDL 73 mg/dL, triglycerides 94 mg/dL (02/01/2025, 5:29am), chronic HTN on irbesartan 300mg PO qam, metoprolol 25mg PO bid, and HCTZ 12.5mg PO qpm, chronic diastolic CHF with preserved LVEF 55-60% (as noted on 02/01/2025, 11:45am TTE, CARDS Dr. Troy Aguilar) on irbesartan 300mg PO qam, metoprolol 25mg PO bid, and HCTZ 12.5mg PO qpm, and chronic rheumatoid arthritis on methotrexate 7.5mg SQ weekly, who was placed in OBSERVATION on the hospitalist service @ [facility] on 01/31/2025 with the following diagnosis: 1. Chest pain of unclear etiology, s/p rule out acute (N)STEMI. Initial plan of action in [facility] ER: #Chest pain rule out OK / suspected pericarditis Chest pain history fits much better with pericarditis than acute coronary syndrome, less likely GERD (does not explain pleuritic nature or upper tooth pain), however with age, rapid onset and no EKG changes plan to observe overnight with repeat troponins (e.g., troponin-I #1 6.7 pg/mL (01/31/2025, 11:58pm); troponin-I #2 9.6 pg/mL (02/01/2025, 5:29am) ruling out acute NSTEMI. In addition, TTE (02/01/2025, 11:45am TTE, CARDS Dr. Troy Aguilar) reveals no LV wall motion abnormalities, thereby making acute myocardial ischemia highly unlikely. Started colchicine 0.6mg PO BID (02/01/2025, 8:31am) for suspected pericarditis, which is probably NOT present given the absence of tripartite friction rub on 02/01/2025 physical exam and given the absence of pericardial effusion on 02/01/2025, 11:45am TTE, CARDS Dr. Troy Aguilar). Patient was advised to see his PCP Dr. Estrada Benjamin within 5-7 days of hospital discharge after starting colchicine 0.6mg PO bid (02/01/2025, 8:31am) empirically for presumed acute pericarditis, and to check repeat ESR and CRP levels (cf., elevated ESR 35 mm/hr on 01/31/2025, 9:20pm; elevated CRP 2.15 mg/dL on 01/31/2025, 11:58pm, which may suggest non-specific inflammation). #Rheumatoid arthritis Continue home-scheduled methotrexate 7.5mg PO weekly. #Hypertension Continue home-scheduled iirbesartan 300mg PO qam, metoprolol 25mg PO bid, and HCTZ 12.5mg PO qpm VTE Prophylaxis - low risk, deferred Disposition - observation to med/tele Admission HPI Per Admitting Provider Abhijit Cifuentes is a 79 year old male who presents to the ER with chest pain. Describes approximate 10 minutes after eating a sandwich from brother's pizza when he got out of the car. Initially thought it was because of gas as this is occurred previously but after passing flatus it did not help. Pain started at 5 PM, severity 8 out of 10, substernal radiating to his upper teeth, progressively got better, current severity 4-5 out of 10 only on inspiration (minimal not on inspiration), sharp pain, better standing up, was sitting down especially lying down. He denies any history of heartburn and notes no acid taste in his mouth. He has already taken his evening medications. Discharge Exam Constitutional General: Comfortable, coherent, and cooperative. Not confused, obtunded, or lethargic. Patient speaks with regular carol[place], and in complete, fluent, and articulate 7-9 word sentences without pause, interruption, cough, or wheeze with O2 sat 96% on room air (02/01/2025, 1:30pm). HEENT: Normocephalic, atraumatic. No nystagmus, gaze paresis, anisocoria, miosis, mydriasis, hyphema, scleral injection, conjunctivitis, or pterygium. No otorrhea or rhinorrhea. No pharyngeal erythema, edema, or discharge. Neck: Supple, no stridor, bruit, goiter, or hepato-jugular reflux. Jugular venous pressure is estimated to be 3 cm above the sternal angle of Yoel, which in turn, is 5 cm above the level of the right atrium; with jugular venous pressure estimated to be 8 cm, then, there is no jugular venous distention on 02/01/2025. Lymphatics: No cervical (anterior/posterior), supraclavicular, infraclavicular, axillary, epitrochlear, or inguinal adenopathy. Chest: Symmetric rise and fall with respirations. Non-tender to palpation. Lungs: Clear to auscultation and percussion. Heart: Regular rate and rhythm. S1 and S2 noted. No S3 or S4 summation gallop. No tripartite friction rub. Grade II/ early systolic murmur @ LLSB without radiation to the carotids, axilla, or back, and which remains invariant in regards to the respiratory cycle. Abdomen: Soft, non-tender, non-distended. No rebound, guarding, Anderson's sign, or organomegaly. Bowel sounds auscultated in all 4 quadrants. Extremities: No clubbing, cyanosis, or edema. Skin: No decubitus ulcer or enanthem or exanthem. Neuro: Awake and oriented in regards to person, place, time, and situation. DTR+. 5/5 motor strength in all 4 extremities, both proximally and distally. No myoclonus or tics or tremors. Genito-urinary: No urethral discharge. No marie catheter. Discharge Plan Discharge Items Patient Disposition: Home - Self-Care Reason For Visit: CHEST PAIN RULE OUT OK,SUSPECT PERICARDITIS Discharge Diagnosis: 1. Chest pain of unclear etiology, s/p rule out acute (N)STEMI. Acute pericarditis unlikely to be present given absence of tripartite friction rub on exam and absence of pericardial effusion on TTE (02/01/2025, 5:29am. 2. Chronic HTN on irbesartan 300mg PO qam, metoprolol 25mg PO bid, and HCTZ 12.5mg PO qpm. 3. Chronic diastolic CHF with preserved LVEF 55-60% (as noted on 02/01/2025, 11:45am TTE, CARDS Dr. Troy Aguilar) on irbesartan 300mg PO qam, metoprolol 25mg PO bid, and HCTZ 12.5mg PO qpm. 4. Chronic rheumatoid arthritis on methotrexate 7.5mg PO weekly. No obvious signs of rheumatic heart disease given the absence of mitral valve/aortic valve stenosis/insufficiency (as noted on 02/01/2025, 11:45am TTE, CARDS Dr. Troy Aguilar). 5. Chronic hyperlipidemia on simvastatin 40mg PO qhs with fasting total cholesterol 135 mg/dL, HDL 43 mg/dL, LDL 73 mg/dL, triglycerides 94 mg/dL (02/01/2025, 5:29am). 6. Chronic hypothyroidism on synthroid 88ug PO daily with normal TSH 1.774 uIU/mL (09/05/2024, 8:32am). 7. Chronic BPH on finasteride 5mg PO qam. Condition on Discharge: Fair Activity: Resume your previous activity Lifting: Gradually increase as tolerated Bathing: No limitations Sexual Activity: When tolerated Exercise/Sports: Gradually increase as tolerated Driving/Machine Use: No limitations Weightbearing: Full weightbearing Non-emergency contact: Primary Care Provider Call non-emergency contact if: you have any medication questions Follow-up/Referrals: Estrada Benjamin MD [Primary Care Provider] - 02/09/25 1:00 pm Diet: Heart Healthy Addtl Attending Provider Instructions: See your PCP Dr. Estrada Benjamin within 5-7 days of hospital discharge after starting colchicine 0.6mg PO bid (02/01/2025, 8:31am) empirically for presumed acute pericarditis, and check repeat ESR and CRP levels (cf., elevated ESR 35 mm/hr on 01/31/2025, 9:20pm; elevated CRP 2.15 mg/dL on 01/31/2025, 11:58pm, which may suggest non-specific inflammation). Pending Studies at Discharge: Yes Studies:: See your PCP Dr. Estrada Benjamin within 5-7 days of hospital discharge after starting colchicine 0.6mg PO bid (02/01/2025, 8:31am) empirically for presumed acute pericarditis, and check repeat ESR and CRP levels (cf., elevated ESR 35 mm/hr on 01/31/2025, 9:20pm; elevated CRP 2.15 mg/dL on 01/31/2025, 11:58pm, which may suggest non-specific inflammation). Stand-Alone Forms: [facility] [employer], Smoking Cessation Medications and DC Order Prescriptions: New colchicine [Colcrys] 0.6 mg Tablet 0.6 mg PO BID Qty: 60 0RF Continued irbesartan 300 mg tablet 300 mg PO QAM Qty: 90 3RF simvastatin 40 mg tablet 40 mg PO HS Qty: 90 3RF Rx Instructions: TAKE ONE TABLET BY MOUTH NIGHTLY AT BEDTIME levothyroxine 88 mcg tablet 88 mcg PO QAM Qty: 90 3RF hydrochlorothiazide 12.5 mg tablet 12.5 mg PO QPM Qty: 90 3RF cholecalciferol (vitamin D3) 2,000 unit capsule 2,000 unit PO QPM Qty: 30 folic acid 1 mg tablet 1 mg PO QAM metoprolol tartrate 25 mg tablet 25 mg PO BID Qty: 60 5RF methotrexate sodium 2.5 mg tablet 7.5 mg PO WK Patient Comments: takes on wednesdays- reports only taking 3 tabs Rx Instructions: 2.5mg TABS --TAKES 3 tablets ON WEDNESDAYS. vitamin U82-zbyoz acid 500-400 mcg Tablet 1 tab PO DAILY Rx Instructions: administer with a meal miconazole nitrate 2 % cream 1 applic topical BID PRN (Reason: Rash) finasteride 5 mg tablet 5 mg PO QAM Discharge Orders: Discharge Order (Routine); Ordered 02/01/25 Ordered By: Gurwinder Pena Discharge Order- CHF (Routine); Ordered 02/01/25 Ordered By: Gurwnider Cline/Other Patient Handouts: Colchicine Oral Tablet, Pericarditis, ED Chest Pain, Uncertain Cause Admission Data Admit Date/Time: 02/01/25 01:12 Attending Provider: Gurwinder Pena Admit Provider: Marty Bills Primary Care Provider: Estrada Benjamin Other Providers: Marty Bills; Troy Aguilar Hospital Stay Data Consultations 01/31/25 23:48 ED Decision to Admit Stat 02/01/25 02:57 Consult Cardiology Routine Diagnostic Imagining Performed 01/31/25 22:09 CT angio chest PE protocol Stat Pending Results Patient Have Any Pending Studies at Discharge: Yes Discharge Instructions Given to Patient (Per Discharging Provider) See your PCP Dr. Estrada Benjamin within 5-7 days of hospital discharge after starting colchicine 0.6mg PO bid (02/01/2025, 8:31am) empirically for presumed acute pericarditis, and check repeat ESR and CRP levels (cf., elevated ESR 35 mm/hr on 01/31/2025, 9:20pm; elevated CRP 2.15 mg/dL on 01/31/2025, 11:58pm, which may suggest non-specific inflammation). Total Time Total Time Spent Total Time Spent (In Minutes): 35 minutes. Of this time period, 19 minutes were spent in coordinating patient's discharge. Coding Level of Care Code 18022 INP/OBS DISCH >30 MIN Diagnoses Chest pain R07.9 Chest pain type: unspecified Elevated serum creatinine R79.89 Pericarditis I31.9 Rheumatoid arthritis involving both hands with positive rheumatoid factor M05.741; M05.742
[2025-02-01 13:35] VITALS: BP 185/99; PULSE 83
--- NOTE | 2025-02-01 14:33 | Electrocardiogram Report ---
Test Reason : Blood Pressure : */* mmHG Vent. Rate : 79 BPM Atrial Rate : 79 BPM P-R Int : 258 ms QRS Dur : 84 ms QT Int : 380 ms P-R-T Axes : 47 -4 38 degrees QTcB Int : 435 ms Sinus rhythm with 1st degree A-V block Low voltage QRS ST elevation, consider early repolarization, pericarditis, or injury When compared with ECG of 31-Jan-2025 21:15, (unconfirmed) No significant change was found Confirmed by Troy Aguilar ([id number]) on 02/01/2025 2:32:40 PM Referred By: REFERRED SELF Confirmed By: Troy Aguilar
--- NOTE | 2025-02-01 14:33 | Electrocardiogram Report ---
Test Reason : Blood Pressure : */* mmHG Vent. Rate : 81 BPM Atrial Rate : 81 BPM P-R Int : 232 ms QRS Dur : 70 ms QT Int : 356 ms P-R-T Axes : 60 -2 33 degrees QTcB Int : 413 ms Sinus rhythm with 1st degree A-V block Nonspecific ST abnormality Abnormal ECG When compared with ECG of 08-Aug-2021 18:20, No significant change was found Confirmed by Troy Aguilar ([id number]) on 02/01/2025 2:32:52 PM Referred By: REFERRED SELF Confirmed By: Troy Aguilar
--- NOTE | 2025-02-01 15:19 | Cardiology Consultation ---
Date of Consultation February 01, 2025 Assessment & Plan (1) Pericarditis: -Presumptive diagnosis based on his history and new EKG changes this morning. -No evidence to support coronary ischemia. -He has improved on colchicine. -Would continue on colchicine for a total of 2 to 3 months. -Would decrease colchicine to 0.6 Mg daily in approximately 1 month. -Follow-up in my office in 1 month. (2) Hypertension: -Adequate control on current regimen. (3) Hypercholesterolemia: -Continue simvastatin. History of Present Illness Attending Physician: Gurwinder Pena MD, PhD History of Present Illness Mr. Cifuentes is a 79-year-old man admitted yesterday with a chest pain syndrome. This consultation was ordered to assist in his cardiac management. The patient was in his usual state of health until the day of presentation. After a meal at a local restaurant, the patient noted the onset of a substernal chest discomfort which she initially felt was related to "gas." He belched several times without any improvement in his symptoms. He then noted that his pain was more intense if he assumed the supine position. His pain improved with sitting up and leaning forward. He also noticed an increase in his chest discomfort with a deep breath. He presented to the emergency room for an evaluation. His initial ECG failed to show any ischemic changes. High-sensitivity troponins were also normal. He was given the presumptive diagnosis of pericarditis. He was started on colchicine. This morning, the patient's chest discomfort is greatly improved. He just notes a low level discomfort in the substernal chest region. He has not had any recent upper respiratory infections. He has never known for cardiac events. He has no extremities exertional anginal pectoris or limiting dyspnea. He further denies syncope, presyncope, PND, orthopnea, palpitations, lower extremity edema, and claudication. Currently, patient is resting comfortably in bed. Past medical and surgical history 1. Hypertension 2. Hypercholesterolemia 3. Chronic renal failure 4. Hypothyroidism 5. Rheumatoid arthritis 6. Diverticulitis 7. Colonic polyps 8. Vitamin D deficiency 9. Hearing deficit 10. Carpal tunnel syndrome 11. Bilateral intraocular lens implants 12. 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 Allergies Allergy/AdvReac Type Severity Reaction Status Date / Time No Known Drug Allergies Allergy Verified 12/05/24 09:20 Home Medications Medication Instructions Recorded Confirmed Type cholecalciferol (vitamin D3) 50 2,000 unit PO QPM #30 caps 12/07/18 01/31/25 History mcg (2,000 unit) capsule folic acid 1 mg tablet 1 mg PO QAM 08/21/20 01/31/25 History irbesartan 300 mg tablet 300 mg PO QAM #90 tabs 03/06/24 01/31/25 Rx simvastatin 40 mg tablet 40 mg PO HS #90 tabs 08/14/24 01/31/25 Rx finasteride 5 mg tablet 5 mg PO QAM 09/05/24 01/31/25 History miconazole nitrate 2 % topical 1 applic topical BID PRN Rash 09/05/24 01/31/25 History cream vitamin B12 500 mcg-folic acid 400 1 tab PO DAILY 09/05/24 01/31/25 History mcg tablet methotrexate sodium 2.5 mg tablet 7.5 mg PO WK 09/20/24 01/31/25 History levothyroxine 88 mcg tablet 88 mcg PO QAM #90 tabs 10/09/24 01/31/25 Rx metoprolol tartrate 25 mg tablet 25 mg PO BID #60 tabs 10/18/24 01/31/25 Rx hydrochlorothiazide 12.5 mg tablet 12.5 mg PO QPM #90 tabs 11/10/24 01/31/25 Rx colchicine 0.6 mg tablet (Colcrys) 0.6 mg PO BID #60 tabs 02/01/25 Rx Patient History Medical History History of COVID-19 (2021) CKD (chronic kidney disease), stage III TMJ (dislocation of temporomandibular joint) pt denies, per hx Hx of syncope due to dehydration, pt. states this happened 3 times, most recent in 2023 Hx of vertigo Tinnitus Rheumatoid arthritis involving both hands with positive rheumatoid factor Osteopenia Hypothyroidism Diverticulosis Arthritis Hx of colonic polyp Hx of basal cell carcinoma BPH (benign prostatic hyperplasia) History of kidney stones HLD (hyperlipidemia) HTN (hypertension) Surgical History Hx of colonoscopy with polypectomy History of basal cell carcinoma (BCC) excision History of prostate biopsy History of colonoscopy History of wisdom tooth extraction History of myringotomy right History of cystoscopy History of Cystoscopy With Ureteroscopy With Manipulation Of Calculus History of cataract surgery bilt History of hernia repair x2 Family History Mother Diabetes CHF (congestive heart failure) Father Lung cancer Brother Prostate cancer Coronary heart disease Myocardial infarction Sister Familial heart disease Lymphoma Cancer Other No family history of adverse response to anesthesia Denies family history of Ovarian cancer Breast cancer Colorectal cancer Social History Smoking Status: Never smoker Tobacco Type: Smokeless Tobacco (Dip or Chew) Age Started Using Tobacco: 22; Age Quit Using Tobacco: 59; Second Hand Exposure: No; Do You Dip or Chew Tobacco: Yes; Hx Alcohol Use: No Hx Substance Use: No Preferred Language: German Communication Ability: Effective Visual Impairment: Limited Hearing Ability: Hard of Hearing Building Supervisor Required: No Beliefs That Will Affect Care: None marital status: / Current Living Situation: Alone current occupational status: retired 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 How many Children do You have: 1 Feels Safe at Home: Yes Childhood Exposure to Second-Hand Smoke: No Diet: regular caffeine: Yes (tea in AM) during the past year weight has: remained stable Dental Care, Regularly: Yes Physical Activity Frequency: 1-2 Times per Week Seatbelt Use: always Sunscreen Use: Yes Assistive Devices: Glasses Results & Data Vital Signs (Past 12 Hours) Vital Signs Temp Pulse Pulse Pulse Resp BP BP 02/01/25 13:30 36.4 C L 83 77 18 133/78 185/99 H 02/01/25 11:29 36.4 C L 77 18 133/78 02/01/25 07:27 37.0 C 78 18 126/83 02/01/25 05:46 83 02/01/25 04:05 37.1 C 83 20 144/87 H Pulse Ox O2 Del Method 02/01/25 13:30 96 02/01/25 11:29 96 Room Air 02/01/25 07:27 96 Room Air 02/01/25 05:46 02/01/25 04:05 96 Room Air Laboratory Results CBC electrolytes are unremarkable. Initial high-sensitivity troponin was 5 with follow-up values of 6.7 and 9.6. Diagnostic Findings Echocardiogram notes normal left ventricular systolic function with ejection fraction of 55 to 60%. There is mild LVH along with mild tricuspid reg urgitation. No prior study for comparison. Initial EKG noted sinus rhythm with a first-degree AV block. Tracing this morning notes sinus rhythm with first- degree AV block and a diffuse ST abnormality suggesting pericarditis. Chest x- ray shows no acute disease. PG Care Time/CCT Total # of Minutes Spent Total Time Spent with Patient: Total time spent is greater than 50% in coordination of care (as documented) at patient's floor/unit and/or counseling patient: Coding Level of Care Code 97454 INT INP/OBS CARE 3MIN Diagnoses Pericarditis I31.9 Hypertension I10 Hypercholesterolemia E78.00
[2025-02-01] MEDS ORDERED: SIMVASTATIN 40 MG TAB PO SCH (21:00)
[2025-02-01] MEDS ORDERED: hydroCHLOROthiazide 25 MG TAB PO SCH (21:00)
== END 2025-02-01 14:06 | disposition home or self-care (01) ==
LOC: ED 21:10 → 2N 21:10 → SUATTDRO 02-01 01:12 → 2N 02-01 02:06